=== PATIENT | female | born 1995 | race Caucasian/White ===

== ENCOUNTER 2018-12-30 10:01 | Day surgery (SDC) | payer BC, OTHER ==
--- NOTE | 2018-12-30 09:35 | HP ---
DATE OF SURGERY: 12/30/2018 HISTORY OF PRESENT ILLNESS: The patient is a 23 year-old had abnormal HIDA scan. The radiologist felt she had some chronic cholecystitis. She has had upper endoscopy before. The patient now desires proceeding with cholecystectomy. She is still having some history of nausea, vomiting and epigastric pain. PAST MEDICAL HISTORY: As mentioned above. She has some anxiety. PAST SURGICAL HISTORY: Tubal in the past. Upper endoscopy in the past. MEDICATIONS: control, sertraline, Buspar. ALLERGIES: NKDA. FAMILY HISTORY: Diabetes, hypertension. SOCIAL HISTORY: Half pack per day smoker. Denies alcohol abuse. REVIEW OF SYSTEMS: Fourteen systems reviewed per admission assessment. No chest pain or palpitations other systems negative or noncontributory as above and per preadmission questionnaire. PHYSICAL EXAMINATION: GENERAL: No acute distress. HEENT: Sclerae nonicteric. NECK: No JVD. CHEST: Equal excursion, nonlabored breathing. CVS: Regular rate and rhythm. ABDOMEN: Soft. No peritoneal signs. EXTREMITIES: No significant edema. NEURO: Alert, oriented, moving extremities symmetrically. No gross motor deficits noted. LAB DATA AND TESTS: She had HIDA scan, evidence of chronic cholecystitis. She had ejection fraction of 38%, delayed filling of the gallbladder which radiologist felt was consistent with chronic cholecystitis. IMPRESSION: Nausea, vomiting, epigastric pain, question chronic cholecystitis. I feel the patient will benefit from cholecystectomy. Shown the risk sheet, explained the procedure in detail not limited to bleeding or infection, risk of trocar injury or hernia, risk of bowel, bladder or blood vessel injury, risk of bile leak, bile duct injury, retained stone or sludge possibly requiring further procedure either open or ERCP, general risk of anesthesia, deep venous thrombosis, pulmonary embolism, pneumonia, perioperative risk of aches, pains, bloating, constipation and/or loose stools possibly even chronic in nature, possibility the procedure may not improve her symptoms that she may need further work up and/or testing, or referral to GI for further evaluation. She understands and agrees to the planned procedure, will proceed with laparoscopic cholecystectomy with possible open as an outpatient.
[~2018-12-30 10:01] MED LIST: Lactated Ringers 1,000 ML IV ONE; Lactated Ringers 1,000 ML IV SCH; MEFOXIN 2 GM PREMIX** 2 GM/50 ML ML IV ONE; MEFOXIN 2 GM PREMIX** 2 GM/50 ML ML IV SCH
[2018-12-30] MEDS ORDERED: Versed 2 MG/2 ML Injection IV ONE (10:02)
[2018-12-30] MEDS ORDERED: Zemuron 100 MG/10 ML IJ ONE (10:02)
[2018-12-30] MEDS ORDERED: SUBLIMAZE 250 MCG/5 ML IV ONE (10:02)
[2018-12-30] MEDS ORDERED: Decadron 4 MG INJ IV ONE (10:02)
[2018-12-30] MEDS ORDERED: DIPRIVAN 200 MG/20 ML IV ONE (10:02)
[2018-12-30] MEDS ORDERED: BRIDION 200MG/2ML IV ONE (10:02)
[2018-12-30] MEDS ORDERED: TORAdol 30 mg Injection IV ONE (10:02)
[2018-12-30] MEDS ORDERED: Zofran 4 MG/2 ML VIAL IV ONE (10:02)
[2018-12-30] MEDS ORDERED: Sensorcaine 0.25% 10 ML ONE (10:17)
[2018-12-30] MEDS ORDERED: Lactated Ringers 1,000 ML IV ONE (10:17)
[2018-12-30] MEDS ORDERED: Zofran 4 MG/2 ML VIAL ONE (13:04)
[2018-12-30] MEDS ORDERED: SUBLIMAZE 100 MCG/2 ML ONE (13:04)
[2018-12-30] MEDS ORDERED: MORPHINE SULFATE 10 MG/ML ONE (13:13)
[2018-12-30] MEDS ORDERED: NORCO 5/325 MG PO PRN (13:48)
[2018-12-30 14:33] VITALS: O2SAT 98
[2018-12-30 14:45] VITALS: BP 127/76; PULSE 78
--- NOTE | 2018-12-30 14:47 | OP ---
SURGERY DATE/TIME: 12/30/2018 1212 PREOPERATIVE DIAGNOSIS: Chronic cholecystitis per radiologist on HIDA scan. POSTOPERATIVE DIAGNOSIS: Chronic cholecystitis per radiologist on HIDA scan. PROCEDURE: Laparoscopic cholecystectomy. SURGEON: Dr. Ace Damico. ANESTHESIA: General. ESTIMATED BLOOD LOSS: Minimal. INDICATIONS: As noted above. Risks and benefits explained in detail but not limited to and consent obtained. DESCRIPTION OF PROCEDURE AND FINDINGS: The patient was taken to the operating room. General anesthesia induced. Abdomen prepped and draped in the usual sterile fashion. After official time out and no disagreement with planned procedure, a transverse incision made at the supraumbilical area. Fascia grasped and pulled upward. Veress needle inserted and tested with saline. Pneumoperitoneum accomplished insufflating opening pressure of 0-15. An 11 mm bladeless port and camera inserted without difficulty followed by two - 5 mm right upper quadrant ports and 5 mm epigastric port. The gallbladder grasped retracted over the edge of the liver and laterally away from Calot's triangle. He had some mild chronic inflammation. Dissection carried posterior, lateral to anterior fashion slowly and carefully until the critical view obtained both anteriorly and posteriorly. Once this was accomplished cystic duct and cystic artery clipped x3 and divided in the usual fashion dissecting directly on the gallbladder wall, additional oozing side branch off the cystic artery clipped as necessary directly on the gallbladder wall. Also whether there is a small vein versus 1 to 1.5 mm duct of Luschka was going directly into the gallbladder body this was isolated directly on the gallbladder wall. Whether this is a very small duct of Luschka versus just a vein is going directly into the gallbladder wall. It is carefully dissected down and clipped directly on the gallbladder wall. The gallbladder was slowly and carefully dissected free from its dense attachments to the liver bed staying well away from the visible common duct, staying directly on the gallbladder wall to its attachments carefully dissected free staying directly on the gallbladder wall. Just prior to releasing from final attachments to the anterior edge of liver, the liver bed re-inspected. Clips noted in place in cystic duct and cystic artery stumps. There are no signs of any active bleeding or bowel leakage. It is felt there is no benefit of drain placement. One of the graspers tore a small pinhole in the gallbladder wall spilling a small amount of bile. There is no evidence of any spillage or stone spillage. Just prior to releasing from final attachments to anterior edge of the liver, the liver bed re-inspected. Clips noted in place cystic duct and cystic artery stumps. There are no signs of any active bleeding or bile leakage. It was felt there was no benefit from drain placement. Gallbladder released from final attachments to the anterior edge of liver, placed in Pleatman sac, pulled up and out the 10/11 site at the supraumbilical and passed off. Copious amount of irrigation accomplished lateral to the liver and subhepatic space irrigating until clear. Liver bed re-inspected. Clips noted in place in cystic duct and cystic artery stumps. There are no signs of any active bleeding or bile leakage. It is felt there is no benefit from drain placement. Fascial defect 10/11 site closed was closed with puncture closure device with #1 Vicryl. Pneumoperitoneum decompressed. The wound was irrigated out. Skin incision closed with 4-0 Vicryl. Steri-Strips and sterile dressing applied. 0.25% Marcaine local injected along the skin incision fascial defect. The patient tolerated the procedure well. There were no immediate complications. Findings discussed with the family out in the waiting area.
== END 2018-12-30 14:40 | disposition home or self-care (01) ==
LOC: SDC 10:01
PROVIDERS: ATTEND Surgery
DX: K81.1 Chronic cholecystitis (principal)
CPT/HCPCS: 84703; J0694; J1100; J1885; J2250; J2270; J2405; J2704; J3010; A9270-GY